=== PATIENT | male | born 2000 | race Caucasian/White ===

== ENCOUNTER 2019-05-14 01:42 | Emergency (ER) | payer BC ==
[~2019-05-14] VITALS: Ht 182.9 cm; Wt 79.4 kg
[2019-05-14 01:46] VITALS: BP_SYST 115
[2019-05-14] MEDS ORDERED: ACETAMINOPHEN/CODEINE 300 MG-30 MG TABLET PO ONE (02:30)
[2019-05-14] MEDS ORDERED: MAG-AL HYDROX/SIMETH 30 ML UDC PO ONE (02:30)
[2019-05-14] MEDS ORDERED: AMOXICILLIN 500 MG CAPSULE PO ONE (02:30)
[2019-05-14 03:27] VITALS: BP_SYST 119
== END 2019-05-14 03:27 | disposition home or self-care (01) ==
LOC: SED 01:42
DX: J03.90 Acute tonsillitis, unspecified (principal)
CPT/HCPCS: 99284